=== PATIENT | male | born 1980 | race Caucasian/White ===

== ENCOUNTER 2024-11-03 21:59 | Emergency (ER) | payer SELFPAY ==
[2024-11-03] MEDS: Ketorolac 30 MG/ML SDV IM ONE (22:22)
[2024-11-03] MEDS: Bacitracin/Neomycin/Polymyxin B Oint 0.9 GM U/D Packet TOP ONE (23:14)
[2024-11-03] MEDS: Bacitracin/Neomycin/Polymyxin B Oint 0.9 GM U/D Packet ONE (23:14)
== END 2024-11-03 23:28 | disposition home or self-care (01) ==
LOC: KA.ED 21:59
DX: S03.2XXA Dislocation of tooth, initial encounter (principal); W22.8XXA Striking against or struck by other objects, initial encounter; Y93.89 Activity, other specified
CPT/HCPCS: 70150; 96372; 99283; J1885